=== PATIENT | male | born 1955 | race African-American/Black ===

== ENCOUNTER 2021-09-07 13:35 | Emergency (ER) | payer BC ==
[~2021-09-07] VITALS: Ht 182.9 cm; Wt 102.0 kg
[2021-09-07 15:07] LABS: BASOPHILS % 0.8 % (0.0-2.0); EOSINOPHILS % 1.6 % (0.0-5.0); HEMATOCRIT. 46.5 % (42.0-52.0); HEMOGLOBIN. 15.3 g/dL (14.0-18.0); LYMPHOCYTES % 23.9 % (20.0-50.0); MEAN CORPUSCULAR HEMOGLOBIN 29.5 pg (28.0-32.0); MEAN CORPUSCULAR VOLUME 89.3 fL (80.0-94.0); MEAN PLATELET VOLUME 7.9 fl (7.4-10.4); NEUTROPHILS % 64.7 % (40.0-76.0); PLATELET 221 x1000/uL (130-400); RED BLOOD CELL COUNT 5.21 mill/uL (4.7-6.1); RED CELL DISTRIBUTION WIDTH 14.1 % (11.6-14.6)
[2021-09-07 15:17] LABS: CHLORIDE 103 mEq/L (98-107)
[2021-09-07 18:32] VITALS: BP 161/83
== END 2021-09-07 18:33 | disposition home or self-care (01) ==
LOC: ER 13:35
DX: R00.0 Tachycardia, unspecified (principal); E11.9 Type 2 diabetes mellitus without complications; I10 Essential (primary) hypertension; Z88.0 Allergy status to penicillin
CPT/HCPCS: 36415; 71045; 80053; 83880; 84484; 85025; 99284